=== PATIENT | male | born 1985 | race African-American/Black ===

== ENCOUNTER 2018-03-10 09:05 | Emergency (ER) | payer MEDICAID ==
[~2018-03-10] VITALS: Ht 177.8 cm; Wt 81.9 kg
[2018-03-10] MEDS ORDERED: IBUPROFEN 800MG TABLET PO ONE (10:00)
[2018-03-10 10:12] VITALS: BP 121/67
== END 2018-03-10 10:49 | disposition home or self-care (01) ==
LOC: ER 09:05
DX: S93.492A Sprain of other ligament of left ankle, initial encounter (principal); S90.112A Contusion of left great toe without damage to nail, initial encounter; F17.200 Nicotine dependence, unspecified, uncomplicated; F12.10 Cannabis abuse, uncomplicated; Y93.39 Activity, other involving climbing, rappelling and jumping off; Y93.89 Activity, other specified; Y92.89 Other specified places as the place of occurrence of the external cause; Y99.8 Other external cause status
CPT/HCPCS: 73610; 73660; 99284

== ENCOUNTER 2020-11-09 02:00 | Emergency (ER) | payer MEDICAID ==
[~2020-11-09] VITALS: Ht 167.6 cm; Wt 90.0 kg
[2020-11-09] MEDS ORDERED: ONDANSETRON HCL 4MG/2ML INJ IV STA (03:03)
[2020-11-09] MEDS ORDERED: SODIUM CHLORIDE 0.9% 1,000 ML IV ONE (03:15)
[2020-11-09 03:27] LABS: BASOPHILS % 0.4 % (0.0-2.0); EOSINOPHILS % 0.5 % (0.0-5.0); HEMOGLOBIN. 13.7 g/dL (14.0-18.0); LYMPHOCYTES % 11.5 % (20.0-50.0); MEAN CORPUSCULAR HEMOGLOBIN 28.7 pg (28.0-32.0); MEAN CORPUSCULAR VOLUME 86.2 fL (80.0-94.0); MEAN PLATELET VOLUME 10.6 fl (7.4-10.4); MONOCYTES % 6.9 % (2.0-8.0); NEUTROPHILS % 80.7 % (40.0-76.0); PLATELET 182 x1000/uL (130-400); RED BLOOD CELL COUNT 4.75 mill/uL (4.7-6.1); RED CELL DISTRIBUTION WIDTH 11.8 % (11.6-14.6)
[2020-11-09 03:29] LABS: CHLORIDE 108 mEq/L (98-107)
[2020-11-09] MEDS ORDERED: IBUP-2028 MT (05:21)
[2020-11-09 06:48] VITALS: BP 121/69
== END 2020-11-09 06:49 | disposition home or self-care (01) ==
LOC: ER 02:09
DX: F07.81 Postconcussional syndrome (principal); S02.2XXA Fracture of nasal bones, initial encounter for closed fracture; F12.10 Cannabis abuse, uncomplicated; Z98.890 Other specified postprocedural states; Y04.0XXA Assault by unarmed brawl or fight, initial encounter; Y93.89 Activity, other specified; Y92.488 Other paved roadways as the place of occurrence of the external cause
CPT/HCPCS: 36415; 70450; 70486; 71045; 72125; 73090; 80053; 85025; 86850; 86900; 86901; 96361; 96374; 99285; J2405; J7030

== ENCOUNTER 2021-09-06 15:34 | Emergency (ER) | payer MEDICAID, OTHER ==
[~2021-09-06] VITALS: Ht 177.8 cm; Wt 79.0 kg
[~2021-09-06 15:34] MED LIST: IBUP-2028 MT
[2021-09-06 15:56] VITALS: BP 137/66
== END 2021-09-06 21:31 | disposition left against medical advice (07) ==
LOC: ER 15:34
DX: Z53.21 Procedure and treatment not carried out due to patient leaving prior to being seen by health care provider (principal)

== ENCOUNTER 2022-09-23 00:06 | Emergency (ER) | payer MEDICAID, OTHER ==
[~2022-09-23] VITALS: Ht 177.8 cm; Wt 90.0 kg
[2022-09-23 00:10] VITALS: BP 113/57
== END 2022-09-23 02:47 | disposition left against medical advice (07) ==
LOC: ER 00:06
DX: Z53.21 Procedure and treatment not carried out due to patient leaving prior to being seen by health care provider (principal)